=== PATIENT | female | born 1990 | race Caucasian/White ===

== ENCOUNTER 2016-09-12 14:41 | Emergency (ER) | payer OTHER | END 2016-09-12 16:00 | disposition home or self-care (01) | LOC: ER1 14:41 | DX: Z04.1 Encounter for examination and observation following transport accident (principal); F17.210 Nicotine dependence, cigarettes, uncomplicated; V43.52XA Car driver injured in collision with other type car in traffic accident, initial encounter; Y93.89 Activity, other specified; Y92.410 Unspecified street and highway as the place of occurrence of the external cause | CPT/HCPCS: 99283 ==

== ENCOUNTER 2016-09-14 22:25 | Emergency (ER) | payer OTHER | END 2016-09-15 00:27 | disposition left against medical advice (07) | LOC: ER1 22:25 | DX: Z53.21 Procedure and treatment not carried out due to patient leaving prior to being seen by health care provider (principal) ==